=== PATIENT | female | born 1990 | race Hispanic/Latino ===

== ENCOUNTER 2018-01-13 13:32 | Emergency (ER) | payer SELFPAY ==
[2018-01-13] MEDS ORDERED: Ketorolac Tromethamine 60 MG/2 ML VIAL ONE (13:53)
[2018-01-13] MEDS ORDERED: Dexamethasone 4 MG TAB PO SCH (14:30)
[2018-01-13] MEDS ORDERED: Bicillin LA 1.2 MILLION UNITS/2 ML SYRINGE ONE (14:33)
[2018-01-13] MEDS ORDERED: Dexamethasone 10 MG/ML VIAL ONE (14:34)
== END 2018-01-13 15:07 | disposition home or self-care (01) ==
LOC: ERS 13:32
DX: J02.0 Streptococcal pharyngitis (principal); F17.210 Nicotine dependence, cigarettes, uncomplicated
CPT/HCPCS: 87430; 96372; J0561; J1100; J1885; J8540

== ENCOUNTER 2018-06-18 13:30 | Emergency (ER) | payer SELFPAY ==
[2018-06-18] MEDS ORDERED: Ibuprofen 800 MG TAB ONE (14:51)
[2018-06-18] MEDS ORDERED: Dexamethasone 4 mg/ml Vial ONE (15:09)
[2018-06-18] MEDS ORDERED: Bicillin LA 1.2 MILLION UNITS/2 ML SYRINGE ONE (15:09)
== END 2018-06-18 15:30 | disposition home or self-care (01) ==
LOC: ERS 13:30
DX: J02.0 Streptococcal pharyngitis (principal); Z71.6 Tobacco abuse counseling; F17.210 Nicotine dependence, cigarettes, uncomplicated
CPT/HCPCS: 87430; 96372; 99406; J0561; J1100